=== PATIENT | female | born 1990 ===

== ENCOUNTER 2019-05-02 23:58 | Observation (INO) | payer BC ==
[2019-05-03] MEDS ORDERED: Sodium Chloride 0.9% 10 ML Syringe FLUSH PRN (00:18)
[2019-05-03] MEDS ORDERED: Sodium Chloride 0.9% 2.5 ML Syringe FLUSH PRN (00:18)
[2019-05-03] MEDS ORDERED: Ondansetron 4 MG/2 ML SDV IVPUSH ONE (00:20)
[2019-05-03] MEDS ORDERED: Ketorolac 30 MG/ML SDV IVPUSH ONE (00:20)
[2019-05-03] MEDS ORDERED: Sodium Chloride 0.9% 1,000 ML IV ONE (00:20)
--- NOTE | 2019-05-03 00:23 | EDM.PDOC ---
ED HPI GENERAL MEDICAL PROBLEM - General Chief Complaint: Abdominal Pain Stated Complaint: ABDOMINAL PAIN Time Seen by Provider: 05/03/19 00:12 - History of Present Illness INITIAL COMMENTS - FREE TEXT/NARRATIVE: HISTORY AND PHYSICAL: History of present illness: The patient is a 28-year-old female who presents with complaints of sudden onset of mid abdominal and right-sided abdominal pain that started several hours ago. The patient said she had a normal day without any systemic issues but did have 3 loose stools which is unusual for her. She had no fever chills nausea or vomiting and she denies . The patient says she has not had a menstrual cycle since June but for the last year or so she has been working with [employer] to try to get a handle on her menstrual cycles. The patient tells me she does have a history of ovarian cysts when she was a teenager but not recently. She has had no abdominal surgical history and she's had no urinary complaints or flank pain. The patient says she ate dinner and soon thereafter started feeling very bloated and her abdomen was distended and then she had this right mid abdominal pain radiating to the entire right side. She had nausea but no vomiting and she's not had a fever cough chest pain or shortness of breath with this. She does not take any medications prior to coming here area the patient says she does not have any vaginal bleeding or discharge and has not had intercourse recently Review of systems: As per history of present illness and below otherwise all systems reviewed and negative. Past medical history: As per history of present illness and as reviewed below otherwise noncontributory. Surgical history: As per history of present illness and as reviewed below otherwise noncontributory. Social history: No reported history of drug or alcohol abuse. Family history: As per history of present illness and as reviewed below otherwise noncontributory. Physical exam: General: Well-developed well-nourished female who is nontoxic and has a slight smell of ketones on her breath although she tells me she's been hydrating all day. Vital signs are noted by me. Patient prefers to keep her knees bent but can extend her legs on exam. HEENT: Atraumatic, normocephalic, pupils reactive, negative for conjunctival pallor or scleral icterus, mucous membranes moist, throat clear, neck supple, nontender, trachea midline. Lungs: Clear to auscultation, breath sounds equal bilaterally, chest nontender. Heart: S1S2, regular, negative for clicks, rubs, or JVD. Abdomen: Soft, distended abdomen which is very tympanitic throughout all quadrants on my exam but there is no rebound or guarding. There is some mild right-sided and mid abdominal tenderness without rebound or guarding and bowel sounds are somewhat high-pitched and hypoactive. Negative for masses or hepatosplenomegaly. Negative for costovertebral tenderness. Pelvis: Stable nontender. Genitourinary: Deferred. Rectal: Deferred. Extremities: Atraumatic, negative for cords or calf pain. Neurovascular unremarkable. Neuro: Awake, alert, oriented. Cranial nerves II through XII unremarkable. Cerebellum unremarkable. Motor and sensory unremarkable throughout. Exam nonfocal. Diagnostics: CBC CMP lipase UA UCG one view upright abdominal x-ray, CT scan of the abdomen and pelvis Therapeutics: IV fluids Toradol morphine Zofran All testing results were discussed with the patient and I have also discussed this case with Dr. Sifuentes at 2:30 AM. She feels that the patient can be admitted to medicine and she will be available as needed. Not feel that an NG tube is indicated at this time. I discussed this case with Dr. Mcpherson at 2:53 AM and he is agreeable to observation admission and is aware of testing results Impression: Abdominal pain and distention, enteritis, severe bowel gas distention Definitive disposition and diagnosis as appropriate pending reevaluation and review of above. Abdomen Pain Score (Numeric/FACES): 8 - Related Data Allergies Allergy/AdvReac Type Severity Reaction Status Date / Time No Known Allergies Allergy Verified 05/03/19 00:12 Home Meds: Home Meds . [No Known Home Meds] 05/03/19 [History] ED ROS GENERAL - Review of Systems Review Of Systems: ROS reveals no pertinent complaints other than HPI. ED EXAM, GENERAL - Physical Exam Exam: See Below (See dictation) Course - Vital Signs Last Recorded V/S: Last Vital Signs Temp 36 C 05/03/19 00:10 Pulse 73 05/03/19 01:31 Resp 16 05/03/19 01:31 BP 99/52 L 05/03/19 01:31 Pulse Ox 100 05/03/19 01:31 - Orders/Labs/Meds Orders: Active Orders 24 hr Category Date Time Status Patient Status [ADT] Stat ADT 05/03/19 02:57 Ordered Sodium Chloride 0.9% [Normal Saline] 1,000 ml Med 05/03/19 02:45 Active IV ASDIRECTED Sodium Chloride 0.9% [Saline Flush] Med 05/03/19 00:18 Active 10 ml FLUSH ASDIRECTED PRN Sodium Chloride 0.9% [Saline Flush] Med 05/03/19 00:18 Active 2.5 ml FLUSH ASDIRECTED PRN Saline Lock Insert [OM.PC] Stat Oth 05/03/19 00:19 Ordered Medication Orders Sodium Chloride (Normal Saline) 1,000 mls @ 125 mls/hr IV ASDIRECTED CRYSTAL Sodium Chloride (Saline Flush) 10 ml FLUSH ASDIRECTED PRN PRN Reason: Keep Vein Open Last Admin: 05/03/19 00:34 Dose: 10 ml Sodium Chloride (Saline Flush) 2.5 ml FLUSH ASDIRECTED PRN PRN Reason: Keep Vein Open Last Admin: 05/03/19 00:34 Dose: 2.5 ml Labs: Laboratory Tests 05/03/19 05/03/19 05/03/19 Range/Units 00:25 00:25 00:25 WBC 7.29 (4.0-11.0) K/uL RBC 4.87 (4.30-5.90) M/uL Hgb 14.8 (12.0-16.0) g/dL Hct 44.4 (36.0-46.0) % MCV 91.2 (80.0-98.0) fL MCH 30.4 (27.0-32.0) pg MCHC 33.3 (31.0-37.0) g/dL RDW Std Deviation 43.0 (28.0-62.0) fl RDW Coeff of Clarisa 13 (11.0-15.0) % Plt Count 247 (150-400) K/uL MPV 9.70 (7.40-12.00) fL Neut % (Auto) 40.9 L (48.0-80.0) % Lymph % (Auto) 44.3 H (16.0-40.0) % [place] % (Auto) 9.9 (0.0-15.0) % Eos % (Auto) 3.8 (0.0-7.0) % Baso % (Auto) 1.1 (0.0-1.5) % Neut # (Auto) 3.0 (1.4-5.7) K/uL Lymph # (Auto) 3.2 H (0.6-2.4) K/uL [place] # (Auto) 0.7 (0.0-0.8) K/uL Eos # (Auto) 0.3 (0.0-0.7) K/uL Baso # (Auto) 0.1 (0.0-0.1) K/uL Sodium 142 (136-145) mmol/L Potassium 3.7 (3.5-5.1) mmol/L Chloride 100 (98-107) mmol/L Carbon Dioxide 29.8 (21.0-32.0) mmol/L BUN 17 (7.0-18.0) mg/dL Creatinine 1.0 (0.6-1.0) mg/dL Est Cr Clr Drug Dosing 83.22 mL/min Estimated GFR (MDRD) > 60.0 ml/min Glucose 93 (74-106) mg/dL Calcium 9.2 (8.5-10.1) mg/dL Total Bilirubin 0.4 (0.2-1.0) mg/dL AST 35 (15-37) IU/L ALT 37 (14-63) IU/L Alkaline Phosphatase 105 (46-116) U/L Total Protein 7.6 (6.4-8.2) g/dL Albumin 4.4 (3.4-5.0) g/dL Globulin 3.2 (2.6-4.0) g/dL Albumin/Globulin Ratio 1.4 (0.9-1.6) Lipase 248 (73-393) U/L HCG, Qual NEGATIVE (NEG) Urine Color Urine Appearance Urine pH (5.0-8.0) Ur Specific [place] (1.001-1.035) Urine Protein (NEGATIVE) mg/dL Urine Glucose (UA) (NEGATIVE) mg/dL Urine Ketones (NEGATIVE) mg/dL Urine Occult Blood (NEGATIVE) Urine Nitrite (NEGATIVE) Urine Bilirubin (NEGATIVE) Urine Ictotest Urine Urobilinogen (<2.0) EU/dL Ur Leukocyte Esterase (NEGATIVE) 09/21/19 Range/Units 02:15 WBC (4.0-11.0) K/uL RBC (4.30-5.90) M/uL Hgb (12.0-16.0) g/dL Hct (36.0-46.0) % MCV (80.0-98.0) fL MCH (27.0-32.0) pg MCHC (31.0-37.0) g/dL RDW Std Deviation (28.0-62.0) fl RDW Coeff of Clarisa (11.0-15.0) % Plt Count (150-400) K/uL MPV (7.40-12.00) fL Neut % (Auto) (48.0-80.0) % Lymph % (Auto) (16.0-40.0) % [place] % (Auto) (0.0-15.0) % Eos % (Auto) (0.0-7.0) % Baso % (Auto) (0.0-1.5) % Neut # (Auto) (1.4-5.7) K/uL Lymph # (Auto) (0.6-2.4) K/uL [place] # (Auto) (0.0-0.8) K/uL Eos # (Auto) (0.0-0.7) K/uL Baso # (Auto) (0.0-0.1) K/uL Sodium (136-145) mmol/L Potassium (3.5-5.1) mmol/L Chloride (98-107) mmol/L Carbon Dioxide (21.0-32.0) mmol/L BUN (7.0-18.0) mg/dL Creatinine (0.6-1.0) mg/dL Est Cr Clr Drug Dosing mL/min Estimated GFR (MDRD) ml/min Glucose (74-106) mg/dL Calcium (8.5-10.1) mg/dL Total Bilirubin (0.2-1.0) mg/dL AST (15-37) IU/L ALT (14-63) IU/L Alkaline Phosphatase (46-116) U/L Total Protein (6.4-8.2) g/dL Albumin (3.4-5.0) g/dL Globulin (2.6-4.0) g/dL Albumin/Globulin Ratio (0.9-1.6) Lipase (73-393) U/L HCG, Qual (NEG) Urine Color YELLOW Urine Appearance CLEAR Urine pH 7.0 (5.0-8.0) Ur Specific [place] 1.010 (1.001-1.035) Urine Protein NEGATIVE (NEGATIVE) mg/dL Urine Glucose (UA) NEGATIVE (NEGATIVE) mg/dL Urine Ketones >=80 (NEGATIVE) mg/dL Urine Occult Blood NEGATIVE (NEGATIVE) Urine Nitrite NEGATIVE (NEGATIVE) Urine Bilirubin SMALL H (NEGATIVE) Urine Ictotest NEGATIVE Urine Urobilinogen 0.2 (<2.0) EU/dL Ur Leukocyte Esterase NEGATIVE (NEGATIVE) Meds: Medications Generic Name Dose Route Start Last Admin Trade Name Freq PRN Reason Stop Dose Admin Sodium Chloride 1,000 mls @ 125 mls/hr 05/03/19 02:45 Normal Saline IV ASDIRECTED CRYSTAL Sodium Chloride 10 ml 05/03/19 00:18 05/03/19 00:34 Saline Flush FLUSH 10 ml ASDIRECTED PRN Administration Keep Vein Open Sodium Chloride 2.5 ml 05/03/19 00:18 05/03/19 00:34 Saline Flush FLUSH 2.5 ml ASDIRECTED PRN Administration Keep Vein Open Discontinued Medications Generic Name Dose Route Start Last Admin Trade Name Freq PRN Reason Stop Dose Admin Sodium Chloride 1,000 mls @ 999 mls/hr 05/03/19 00:20 05/03/19 00:33 Normal Saline IV 05/03/19 01:20 999 mls/hr STAT ONE Administration Iopamidol 100 ml 05/03/19 01:51 05/03/19 01:52 Isovue Multipack-370 (76%) IVPUSH 05/03/19 01:52 100 ml ONETIME STA Administration Ketorolac Tromethamine 30 mg 05/03/19 00:20 05/03/19 00:34 Toradol IVPUSH 05/03/19 00:21 30 mg ONETIME ONE Administration Morphine Sulfate 2 mg 05/03/19 00:20 05/03/19 00:34 Morphine IVPUSH 05/03/19 00:21 Not Given ONETIME ONE Ondansetron HCl 4 mg 05/03/19 00:20 05/03/19 00:34 Zofran IVPUSH 05/03/19 00:21 4 mg ONETIME ONE Administration Departure - Departure Time of Disposition: 02:59 Disposition: Refer to Observation Condition: Good Clinical Impression: Abdominal pain Qualifiers: Abdominal location: generalized Qualified Code(s): R10.84 - Generalized abdominal pain - Discharge Information Referrals: Alfred Maya MD [Primary Care Provider] - Forms: ED Department Discharge - My Orders Last 24 Hours: My Active Orders 05/03/19 00:18 Sodium Chloride 0.9% [Saline Flush] 10 ml FLUSH ASDIRECTED PRN Sodium Chloride 0.9% [Saline Flush] 2.5 ml FLUSH ASDIRECTED PRN 05/03/19 00:19 Saline Lock Insert [OM.PC] Stat 05/03/19 02:45 Sodium Chloride 0.9% [Normal Saline] 1,000 ml IV ASDIRECTED 05/03/19 02:57 Patient Status [ADT] Stat - Assessment/Plan Last 24 Hours: My Active Orders 05/03/19 00:18 Sodium Chloride 0.9% [Saline Flush] 10 ml FLUSH ASDIRECTED PRN Sodium Chloride 0.9% [Saline Flush] 2.5 ml FLUSH ASDIRECTED PRN 05/03/19 00:19 Saline Lock Insert [OM.PC] Stat 05/03/19 02:45 Sodium Chloride 0.9% [Normal Saline] 1,000 ml IV ASDIRECTED 05/03/19 02:57 Patient Status [ADT] Stat
[2019-05-03] MEDS: Morphine 2 MG/ML Syringe IVPUSH ONE ×2 (00:34→03:20)
[2019-05-03 01:02] LABS: BLOOD UREA NITROGEN,BUN 17 mg/dL (7.0-18.0); CARBON DIOXIDE,CO2 29.8 mmol/L (21.0-32.0); CHLORIDE,CL 100 mmol/L (98-107); GLUCOSE RANDOM 93 mg/dL (74-106); LIPASE 248 U/L (73-393); POTASSIUM,K 3.7 mmol/L (3.5-5.1); SODIUM,NA 142 mmol/L (136-145)
--- NOTE | 2019-05-03 01:05 | CR ---
Indication: Abdominal pain Technique: KUB upright view Comparison: None Findings/Impression: : No pneumoperitoneum. Moderate amount of air throughout nondistended loops of colon. No abnormal calcification. Osseous structures intact. Dictated by Little Diaz MD @ May 03 2019 1:03AM Signed by Dr. Little Diaz @ May 03 2019 1:04AM
[2019-05-03] MEDS ORDERED: Iopamidol 755 MG/ML 500 ML Multipack Bottle IVPUSH STA (01:51)
--- NOTE | 2019-05-03 02:07 | CT ---
INDICATION: Abdominal pain TECHNIQUE: CT abdomen and pelvis acquired with 100 cc Isovue-300 IV contrast. COMPARISON: KUB from earlier today FINDINGS: Lower chest: Unremarkable. Liver: Small amount of fluid in the hepatorenal space. Fatty infiltration the liver. Spleen: Unremarkable. Pancreas: Unremarkable. Gallbladder and bile ducts: Unremarkable. Adrenal glands: Unremarkable. Kidneys: Unremarkable. GI tract: Large amount of food and fluid in the stomach. The duodenum is decompressed. Wall thickening of multiple loops of small bowel. Moderate amount of air within distended ascending and transverse colon. The ascending colon measures 9.6 cm in diameter. Gradual taper to normal diameter at the level of the splenic flexure. No free air or pneumatosis. The appendix appears to be surgically absent. Vascular structures: Unremarkable. Lymph nodes: Unremarkable. Pelvic Organs: Trace free fluid in the pelvis. Bones: Unremarkable for age. IMPRESSION: Wall thickening of multiple loops of small bowel may be due to enteritis. There is also a large amount of food in fluid within the stomach. There is distention of the ascending colon without evidence for obstruction. The colon gradually tapers to a normal diameter. Small amount of free fluid. No free air or pneumatosis. Hepatic steatosis. The appendix appears to be surgically absent. Correlate with surgical history. Please note that all CT scans at this facility use dose modulation, iterative reconstruction, and/or weight-based dosing when appropriate to reduce radiation dose to as low as reasonably achievable. Dictated by Little Diaz MD @ May 03 2019 2:04AM Signed by Dr. Little Diaz @ May 03 2019 2:04AM
[2019-05-03] MEDS ORDERED: Sodium Chloride 0.9% 1,000 ML IV SCH ×2 (02:45→04:45)
[2019-05-03] MEDS ORDERED: Morphine 2 MG/ML Syringe ONE (03:18)
[2019-05-03] MEDS ORDERED: Morphine 2 MG/ML Syringe IVPUSH PRN (04:42)
[2019-05-03] MEDS ORDERED: Ketorolac 15 MG/ML SDV IVPUSH PRN (13:21)
--- NOTE | 2019-05-03 13:27 | PCM.HP.2 ---
Addendum entered and electronically signed by Bernardo Cruz MD 05/03/19 18:57 : Discharged : Patient ultimately requested to leave as she was tolerating diet ; clear liquid diet advanced to bland diet (ate eggs ) w/o nausea, vomiting or diarrhea. pt. did not have a BM since admission but has been passing gas. Denies Nausea or discomfort while eating foods. Requesting to go home as she is not endorsing any pain or discomfort. pt. advised to increase fiber in diet and follow up with he PCP w/in 1-week. Advised to Return if symptoms of abdominal pain, fevers, chills or intractable NAusea/vomiting develop. pt. understood. Original Note: H&P History of Present Illness - General Date of Service: 05/03/19 Admit Problem/Dx: Admission Diagnosis/Problem Admission Diagnosis/Problem Abdominal pain - History of Present Illness Initial Comments - Free Text/Narative: Patient is a 28-year-old female with a past medical history ovarian cysts and irregular menstrual cycle; presenting last night with complaints of sudden onset right-sided abdominal pain. States the pain felt like swelling in her right belly and came on suddenly. She initially thought she had appendicitis based off of her pain and location of symptoms .Of note, states she did have some mild diarrhea for 1-2 days before, and regular bowel movements up until yesterday. Patient denies any fevers, chills, body aches,, history of abdominal surgery. Denies any new foods or recent sick contacts. Does endorse gaining weight about 20 pounds in the past year; prompting her to start the Keto -diet; otherwise has no other issues or complaints. Bedside: Patient resting comfortably; states the abdominal discomfort is more or less stable. Endorses passing gas and urinating; has not eaten since been admitted and has had no bowel movement since admission. Abdomen Pain Score (Numeric/FACES): 8 - Related Data Allergies/Adverse Reactions: Allergies Allergy/AdvReac Type Severity Reaction Status Date / Time No Known Allergies Allergy Verified 05/03/19 00:12 Home Medications: Home Meds . [No Known Home Meds] 05/03/19 [History] Past Medical History HEENT History: Reports: None Cardiovascular History: Reports: None Respiratory History: Reports: None Gastrointestinal History: Reports: None Genitourinary History: Reports: None MED DIR History: Reports: None Musculoskeletal History: Reports: None Neurological History: Reports: None Psychiatric History: Reports: Anxiety, Depression Endocrine/Metabolic History: Reports: None Insulin Pump Model and State Epidemiologist: None Hematologic History: Reports: None Immunologic History: Reports: None Oncologic (Cancer) History: Reports: None Dermatologic History: Reports: None - Infectious Disease History Infectious Disease History: Reports: None - Past Surgical History Head Surgeries/Procedures: Reports: None Social & Family History - Family History Family Medical History: Noncontributory - Tobacco Use Smoking Status *Q: Never Smoker - Caffeine Use Caffeine Use: Reports: Coffee - Recreational Drug Use Recreational Drug Use: No H&P Review of Systems - Review of Systems: Review Of Systems: See Below General: Denies: Fever, Chills, Malaise, Fatigue HEENT: Reports: No Symptoms Pulmonary: Reports: No Symptoms Cardiovascular: Reports: No Symptoms Gastrointestinal: Reports: Abdominal Pain, Decreased Appetite, Flatus, Nausea. Denies: Stool Incontinence, Vomiting Genitourinary: Denies: No Symptoms Musculoskeletal: Denies: No Symptoms Psychiatric: Denies: No Symptoms Neurological: Denies: No Symptoms Exam - Exam Exam: See Below - Vital Signs Vital Signs: Last Vital Signs Temp 96.8 F 05/03/19 08:00 Pulse 81 05/03/19 08:00 Resp 18 05/03/19 08:00 BP 97/53 L 05/03/19 08:00 Pulse Ox 97 05/03/19 08:00 Weight: 151 lb 9.6 oz - Exam General: Alert, Oriented HEENT: EOMI, Mucosa Moist & [place] Neck: Supple, Trachea Midline Lungs: Clear to Auscultation, Normal Respiratory Effort Cardiovascular: Regular Rate, Regular Rhythm GI/Abdominal Exam: Other (+tenderness of abdomen; predominantly over right lower quadrant; no obvious distension; no rebound tenderness; no organomegaly ) Rectal (Female) Exam: Deferred Back Exam: No: CVA Tenderness (L), CVA Tenderness (R) Skin: Warm, Dry, Intact Neurological: Cranial Nerves Intact Neuro Extensive - Mental Status: Alert, Oriented x3 Neuro Extensive - Motor, Sensory, Reflexes: CN II-XII Intact, Normal Gait Psychiatric: Alert, Normal Affect, Normal Mood - Patient Data Lab Results Last 24 hrs: Laboratory Results - last 24 hr 05/03/19 05/03/19 05/03/19 Range/Units 00:25 00:25 00:25 WBC 7.29 (4.0-11.0) K/uL RBC 4.87 (4.30-5.90) M/uL Hgb 14.8 (12.0-16.0) g/dL Hct 44.4 (36.0-46.0) % MCV 91.2 (80.0-98.0) fL MCH 30.4 (27.0-32.0) pg MCHC 33.3 (31.0-37.0) g/dL RDW Std Deviation 43.0 (28.0-62.0) fl RDW Coeff of Clarisa 13 (11.0-15.0) % Plt Count 247 (150-400) K/uL MPV 9.70 (7.40-12.00) fL Neut % (Auto) 40.9 L (48.0-80.0) % Lymph % (Auto) 44.3 H (16.0-40.0) % [place] % (Auto) 9.9 (0.0-15.0) % Eos % (Auto) 3.8 (0.0-7.0) % Baso % (Auto) 1.1 (0.0-1.5) % Neut # (Auto) 3.0 (1.4-5.7) K/uL Lymph # (Auto) 3.2 H (0.6-2.4) K/uL [place] # (Auto) 0.7 (0.0-0.8) K/uL Eos # (Auto) 0.3 (0.0-0.7) K/uL Baso # (Auto) 0.1 (0.0-0.1) K/uL Sodium 142 (136-145) mmol/L Potassium 3.7 (3.5-5.1) mmol/L Chloride 100 (98-107) mmol/L Carbon Dioxide 29.8 (21.0-32.0) mmol/L BUN 17 (7.0-18.0) mg/dL Creatinine 1.0 (0.6-1.0) mg/dL Est Cr Clr Drug Dosing 83.22 mL/min Estimated GFR (MDRD) > 60.0 ml/min Glucose 93 (74-106) mg/dL Calcium 9.2 (8.5-10.1) mg/dL Total Bilirubin 0.4 (0.2-1.0) mg/dL AST 35 (15-37) IU/L ALT 37 (14-63) IU/L Alkaline Phosphatase 105 (46-116) U/L Total Protein 7.6 (6.4-8.2) g/dL Albumin 4.4 (3.4-5.0) g/dL Globulin 3.2 (2.6-4.0) g/dL Albumin/Globulin Ratio 1.4 (0.9-1.6) Lipase 248 (73-393) U/L HCG, Qual NEGATIVE (NEG) Urine Color Urine Appearance Urine pH (5.0-8.0) Ur Specific [place] (1.001-1.035) Urine Protein (NEGATIVE) mg/dL Urine Glucose (UA) (NEGATIVE) mg/dL Urine Ketones (NEGATIVE) mg/dL Urine Occult Blood (NEGATIVE) Urine Nitrite (NEGATIVE) Urine Bilirubin (NEGATIVE) Urine Ictotest Urine Urobilinogen (<2.0) EU/dL Ur Leukocyte Esterase (NEGATIVE) 05/03/19 Range/Units 02:15 WBC (4.0-11.0) K/uL RBC (4.30-5.90) M/uL Hgb (12.0-16.0) g/dL Hct (36.0-46.0) % MCV (80.0-98.0) fL MCH (27.0-32.0) pg MCHC (31.0-37.0) g/dL RDW Std Deviation (28.0-62.0) fl RDW Coeff of [place]isa (11.0-15.0) % Plt Count (150-400) K/uL MPV (7.40-12.00) fL Neut % (Auto) (48.0-80.0) % Lymph % (Auto) (16.0-40.0) % [place] % (Auto) (0.0-15.0) % Eos % (Auto) (0.0-7.0) % Baso % (Auto) (0.0-1.5) % Neut # (Auto) (1.4-5.7) K/uL Lymph # (Auto) (0.6-2.4) K/uL [place] # (Auto) (0.0-0.8) K/uL Eos # (Auto) (0.0-0.7) K/uL Baso # (Auto) (0.0-0.1) K/uL Sodium (136-145) mmol/L Potassium (3.5-5.1) mmol/L Chloride (98-107) mmol/L Carbon Dioxide (21.0-32.0) mmol/L BUN (7.0-18.0) mg/dL Creatinine (0.6-1.0) mg/dL Est Cr Clr Drug Dosing mL/min Estimated GFR (MDRD) ml/min Glucose (74-106) mg/dL Calcium (8.5-10.1) mg/dL Total Bilirubin (0.2-1.0) mg/dL AST (15-37) IU/L ALT (14-63) IU/L Alkaline Phosphatase (46-116) U/L Total Protein (6.4-8.2) g/dL Albumin (3.4-5.0) g/dL Globulin (2.6-4.0) g/dL Albumin/Globulin Ratio (0.9-1.6) Lipase (73-393) U/L HCG, Qual (NEG) Urine Color YELLOW Urine Appearance CLEAR Urine pH 7.0 (5.0-8.0) Ur Specific [place] 1.010 (1.001-1.035) Urine Protein NEGATIVE (NEGATIVE) mg/dL Urine Glucose (UA) NEGATIVE (NEGATIVE) mg/dL Urine Ketones >=80 (NEGATIVE) mg/dL Urine Occult Blood NEGATIVE (NEGATIVE) Urine Nitrite NEGATIVE (NEGATIVE) Urine Bilirubin SMALL H (NEGATIVE) Urine Ictotest NEGATIVE Urine Urobilinogen 0.2 (<2.0) EU/dL Ur Leukocyte Esterase NEGATIVE (NEGATIVE) Result Diagrams: 05/03/19 00:25 05/03/19 00:25 Problem List Initiated/Reviewed/Updated: Yes Orders Last 24hrs: Active Orders 24 hr Category Date Time Status Patient Status [ADT] Stat ADT 05/03/19 02:57 Active NPO Now [Nothing per Oral Now Diet] [DIET] Diet 05/03/19 Breakfast Active Ketorolac [Toradol] Med 05/03/19 13:21 Ordered 15 mg IVPUSH Q8H PRN Morphine Med 05/03/19 04:42 Hold 2 mg IVPUSH Q3H PRN Simethicone Med 05/03/19 17:00 Ordered 80 mg PO TIDAC Sodium Chloride 0.9% [Normal Saline] 1,000 ml Med 05/03/19 04:45 Active IV ASDIRECTED Sodium Chloride 0.9% [Saline Flush] Med 05/03/19 00:18 Active 10 ml FLUSH ASDIRECTED PRN Sodium Chloride 0.9% [Saline Flush] Med 05/03/19 00:18 Active 2.5 ml FLUSH ASDIRECTED PRN Saline Lock Insert [OM.PC] Stat Oth 05/03/19 00:19 Ordered Medication Orders Sodium Chloride (Normal Saline) 1,000 mls @ 125 mls/hr IV ASDIRECTED CRYSTAL Last Admin: 05/03/19 11:39 Dose: 125 mls/hr Ketorolac Tromethamine (Toradol) 15 mg IVPUSH Q8H PRN PRN Reason: Abdominal Pain Stop: 05/08/19 13:21 Morphine Sulfate (Morphine) 2 mg IVPUSH Q3H PRN PRN Reason: Pain Simethicone (Simethicone) 80 mg PO TIDAC CRYSTAL Sodium Chloride (Saline Flush) 10 ml FLUSH ASDIRECTED PRN PRN Reason: Keep Vein Open Last Admin: 05/03/19 00:34 Dose: 10 ml Sodium Chloride (Saline Flush) 2.5 ml FLUSH ASDIRECTED PRN PRN Reason: Keep Vein Open Last Admin: 05/03/19 00:34 Dose: 2.5 ml Assessment/Plan Comment:: Assessment 1. Abdominal pain secondary to Ascending colon distention without obstruction 2. Hepatic steatosis 3. Past medical history: Irregular menstrual cycle, history of ovarian cysts Plan: Admitted to observation. Full code. Intake and output protein. Vitals per routine. Activity: Up ad kacy. DVT prophylaxis: SCDs. Diet: Nothing by mouth; we' ll advance to clear liquid once tolerated. 1. CT abdomen and pelvis showed ascending colon distention without obstruction: Continue IV fluids, nothing by mouth; advance as tolerated. Simethicone 3 times a day 2. Lipid panel:hepatic steatosis 3. Pain control: Discontinue morphine; switch over to Toradol. Can return back to morphine if not controlled. 4. Will consider surgical consult if patient is clinically deteriorating or not improving.
[2019-05-03] MEDS ORDERED: Simethicone 80 MG Tab.Chew PO SCH ×2 (14:00→17:00)
== END 2019-05-03 19:40 | disposition home or self-care (01) ==
LOC: MW.ED 23:58 → MW.MS 05-03 02:57
PROVIDERS: ADMIT Internal Medicine; ATTEND Internal Medicine
DX: K63.89 Other specified diseases of intestine (principal); K76.0 Fatty (change of) liver, not elsewhere classified; K52.9 Noninfective gastroenteritis and colitis, unspecified; R14.0 Abdominal distension (gaseous); Z87.42 Personal history of other diseases of the female genital tract
CPT/HCPCS: 36415; 74018; 74177; 80053; 81003; 83690; 84703; 85025; 96361; 96374; 96375; 99285; A9270; J1885; J2270; J2405; J7040; Q9967; G0378